=== PATIENT | female | born 1955 | race Caucasian/White ===

== ENCOUNTER → 2023-12-29 07:40 | Outpatient (REF) | payer MEDICARE, OTHER, SELFPAY | LOC: WDC 07:40 | PROVIDERS: ATTENDING PHYSICIAN Internal Medicine | DX: R92.2 Inconclusive mammogram (principal) | CPT/HCPCS: 76641 ==

== ENCOUNTER → 2024-11-11 17:25 | Outpatient (REF) | payer MEDICARE, OTHER, SELFPAY | LOC: WDC 17:25 | PROVIDERS: ATTENDING PHYSICIAN Internal Medicine | DX: Z12.31 Encounter for screening mammogram for malignant neoplasm of breast (principal) | CPT/HCPCS: 77063; 77067 ==

== ENCOUNTER → 2025-01-17 08:36 | Outpatient (REF) | payer MEDICARE, OTHER, SELFPAY | LOC: RAD 08:36 | PROVIDERS: ATTENDING PHYSICIAN Internal Medicine | DX: M81.0 Age-related osteoporosis without current pathological fracture (principal) | CPT/HCPCS: 77080 ==

== ENCOUNTER → 2025-04-03 14:43 | Outpatient (REF) | payer MEDICARE, OTHER, SELFPAY | LOC: HWRAD 14:43 | PROVIDERS: ATTENDING PHYSICIAN Internal Medicine; FAMILY PHYSICIAN Internal Medicine | DX: R19.06 Epigastric swelling, mass or lump (principal); R14.0 Abdominal distension (gaseous) | CPT/HCPCS: 76700 ==

== ENCOUNTER → 2025-07-01 10:13 | Outpatient (REF) | payer MEDICARE, OTHER, SELFPAY | LOC: HWRAD 10:13 | PROVIDERS: ATTENDING PHYSICIAN Nurse Practitioner Family; FAMILY PHYSICIAN Internal Medicine | DX: R10.2 Pelvic and perineal pain (principal) | CPT/HCPCS: 76830; 76856 ==

== ENCOUNTER → 2025-07-23 07:34 | Outpatient (REF) | payer MEDICARE, OTHER, SELFPAY ==
[2025-07-23 09:37] LABS: Blood Urea Nitrogen 15 mg/dl (7-17); Calcium 9.5 mg/dl (8.4-10.2); Carbon Dioxide 30 mmol/L (22-30); Chloride 104 mmol/L (98-107); Glucose 97 mg/dl (70-99); Potassium 5.2 mmol/L (3.5-5.1); Sodium 138 mmol/L (135-145); eGFR > 60.00
[2025-07-23 09:56] LABS: Hematocrit 43.6 % (37.0-47.0); Hemoglobin 14.5 g/dL (12.0-16.0); Mean Corp Hgb Conc. 33.3 g/dL (33.0-37.0); Mean Corpuscular Volume 90.6 fL (81.0-99.0); Nucleated Red Blood Cells % 0 %; Platelet Count 257 10^3/uL (130-400); Red Cell Dist. Width 12.7 % (11.5-14.5)
== END ==
LOC: SDSPAT 07:34
PROVIDERS: ATTENDING PHYSICIAN Obstetrics & Gynecology; FAMILY PHYSICIAN Internal Medicine
DX: Z01.818 Encounter for other preprocedural examination (principal)
CPT/HCPCS: 36415; 80048; 85025; 93005

== ENCOUNTER 2025-08-06 06:28 | Day surgery (SDC) | payer MEDICARE, OTHER, SELFPAY ==
[2025-07-23 14:17] VITALS: BMI 28.6
[2025-08-06] VITALS (13 sets, daily range): BP systolic 86–150; BP diastolic 52–83; BMI 28.6; BMI 25.9
[2025-08-06] MEDS: NEURONTIN 300 MG PO (10:24)
[2025-08-06] MEDS: TYLENOL 1000 MG PO (10:25)
[2025-08-06] MEDS: NORMOSOL-R/PLASMALYTE-A 1000 IV (13:00)
== END 2025-08-06 14:39 | disposition home or self-care (01) ==
LOC: SDS 06:28
PROVIDERS: ATTENDING PHYSICIAN Obstetrics & Gynecology; FAMILY PHYSICIAN Internal Medicine
DX: N84.2 Polyp of vagina (principal); N89.8 Other specified noninflammatory disorders of vagina
CPT/HCPCS: 57135; 86850; 86900; 86901; 88305

== ENCOUNTER → 2025-10-29 15:14 | Outpatient (REF) | payer MEDICARE, OTHER, SELFPAY | LOC: WDC 15:14 | PROVIDERS: ATTENDING PHYSICIAN Internal Medicine | DX: Z12.31 Encounter for screening mammogram for malignant neoplasm of breast (principal) | CPT/HCPCS: 77063; 77067 ==